=== PATIENT | female | born 1970 | race Caucasian/White ===

== ENCOUNTER 2017-01-10 10:58 | Day surgery (SDC) | payer OTHER ==
[~2017-01-10] VITALS: Ht 152.4 cm; Wt 88.5 kg
[2017-01-10] VITALS (15 sets, daily range): BP systolic 110–139; BP diastolic 56–85; PULSE 69–85; RESP 14–18; Ht 152.4 cm; Wt 88.5 kg
--- NOTE | 2017-01-10 06:12 | PREOPHP ---
DATE OF ADMISSION: 01/10/2017 HISTORY OF PRESENT ILLNESS: This is a 46-year-old lady, 3, para 3. Her last normal menstru al period was a few days prior to admission. She was admitted for LEEP and D and C. This patient h ad an abnormal Pap smear, high grade AIXA with positive HPV. Colposcopy biopsy was done and showed C IN 3 for the ectocervix and endocervical curettage. She is also known to have a fibroid uterus. Parveen hair bleeds heavy with her periods for the last 5 years. She was admitted for LEEP and D and C. The p rocedures were explained to the patient, and she understood everything totally. The risks, benefits , and alternatives were discussed with her as well. PAST PERSONAL HISTORY: No history of diabetes, TB, asthma. ALLERGIES: NO ALLERGIES. SOCIAL HISTORY: Patient does not smoke. She does not drink. FAMILY HISTORY: She is 3, para 3 with 3 normal deliveries. Mother has history of high bloo d pressure. PAST SURGICAL HISTORY: No surgery before. REVIEW OF SYSTEMS: CARDIOVASCULAR: No chest pains. RESPIRATORY: No cough. GASTROINTESTINAL: No diarrhea, no vomiting. GENITOURINARY: No dysuria. PHYSICAL EXAMINATION: GENERAL: Reveals a conscious coherent lady in no acute distress. VITAL SIGNS: Her blood pressure 120/80, pulse rate 80 per minute, respirations 16 per minute. BREASTS, HEART, AND LUNGS: Within normal limits. ABDOMEN: Soft. No organomegaly. Uterus about 18 weeks' size with fibroids. PELVIC: Revealed the cervix to be firm. Uterus 18 weeks size. Adnexa were not able to be properly delineated. RECTAL: Confirmed the pelvic findings. EXTREMITIES: No pedal edema. ADMITTING DIAGNOSIS: Fibroid uterus with SAM 3 per colposcopy directed biopsy. PLAN: The patient was planned to have LEEP and D and C. Dictated By: MARISSA SINGH MD NS/NTS Conf#: [id number] DID#: [id number] CC: MARISSA SINGH MD;*EndCC*
[2017-01-10] MEDS ORDERED: STRONG IODINE 14 ML SOLUTION TOP ONE (13:35)
[2017-01-10] MEDS ORDERED: PROPOFOL 20 ML ONE (13:49)
[2017-01-10] MEDS ORDERED: MIDAZOLAM 1 MG/ML 2 ML INJ ONE (13:50)
[2017-01-10] MEDS ORDERED: LIDOCAINE 1% (MDV) 20 ML INJ ONE (13:50)
[2017-01-10] MEDS ORDERED: CEFAZOLIN 1 GM INJ ONE ×2 (14:00)
[2017-01-10] MEDS ORDERED: ONDANSETRON 4 MG INJ ONE (14:03)
[2017-01-10] MEDS ORDERED: FAMOTIDINE 20 MG INJ ONE (14:03)
[2017-01-10] MEDS ORDERED: DEXAMETHASONE 4 MG/ML 1 ML INJ ONE (14:03)
[2017-01-10] MEDS ORDERED: FENTAnyl 50 MCG/ML VIAL ONE (14:05)
[2017-01-10] MEDS ORDERED: HYDROmorphONE (0.2 MG/ML) 10ML SYG IV PRN ×2 (14:30)
[2017-01-10] MEDS ORDERED: ONDANSETRON 4 MG INJ IV PRN (14:30)
[2017-01-10] MEDS ORDERED: PROCHLORPERAZINE 10 MG INJ IV PRN (14:30)
[2017-01-10] MEDS ORDERED: ACETAMINOPHEN 325 MG TAB PO PRN (15:00)
--- NOTE | 2017-01-10 16:06 | OPR ---
DATE OF OPERATION: 01/10/2017 PREOPERATIVE DIAGNOSIS: 1. 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 2. Fibroid uterus. POSTOPERATIVE DIAGNOSIS: 1. Pending pathology report. 2. Fibroid uterus. SURGEON: Edith Sandy MD DOUGH MAKER: Natividad gaines. ANESTHESIA: General. OPERATION PERFORMED: LEEP and D and C. OPERATIVE TECHNIQUE: Under general anesthesia, the patient was prepped and draped in the usual fashion for vaginal surgery. Pelvic exam under anesthesia revealed the cervix to be firm, uterus about 16 to 18 weeks' size, and adnexa were negative for masses. Then, the heavy weight vaginal retractor was put in place and the anterior lip of the cervix was grasped with an Allis clamp. The whole cervix and vagina was dabbed with Lugol's solution. The external os of the cervix did not take the Lugol's solution, so that the loop was passed from left to right on the anterior lip of the cervix and from left to right on the posterior lip of the cervix. A good amount of ectocervical biopsy was done. Then, another smaller loop was passed up to the endocervical canal. A good amount of endocervical biopsy was done. Then, endocervical curettage was performed and a small amount of tissue was obtained. Endometrial curettage was performed and a small amount of tissue was obtained. The patient tolerated the procedure well. The site of the biopsy was cauterized with a ball cautery and there was no bleeding noted. A small piece of Surgicel was left at the site of the biopsy. Estimated blood loss was minimal. Vital signs were stable during and after the procedure. Dictated By: EDITH SANDY MD NS/NTS Conf#: [id number] DID#: [id number] CC: EDITH SANDY MD;*EndCC* MTDD
== END 2017-01-10 16:15 | disposition home or self-care (01) ==
LOC: SDS 10:58
PROVIDERS: ATTEND Obstetrics & Gynecology
DX: D06.1 Carcinoma in situ of exocervix (principal); D25.9 Leiomyoma of uterus, unspecified; E66.9 Obesity, unspecified; Z68.38 Body mass index [BMI] 38.0-38.9, adult
CPT/HCPCS: 57522; 84702; 84703; 86850; 86900; 86901; 88305; J0690; J1100; J2250; J2405; J3010; Z7512; Z7610